=== PATIENT | female | born 1960 | race Hispanic/Latino ===

== ENCOUNTER 2024-12-08 08:40 | Emergency (ER) | payer MEDICARE, OTHER ==
[~2024-12-08] VITALS: Ht 157.5 cm; Wt 77.6 kg
[2024-12-08 08:45] VITALS: TEMP 98.2
[2024-12-08 09:06] LABS: BASOPHILS # (AUTO) 0.1 (0.0-0.1); BASOPHILS % 0.9 % (0.0-1.0); EOSINOPHILS # (AUTO) 0.3 (0.0-0.4); EOSINOPHILS % 2.2 % (0.0-6.0); HEMATOCRIT 37.1 % (34.2-44.1); HEMOGLOBIN 13.7 g/dL (12.0-16.0); LYMPHOCYTES # (AUTO) 1.9 (1.0-3.2); LYMPHOCYTES % 16.4 % (18.0-39.1); MEAN CORPUSCULAR HEMOGLOBIN 32.3 pg (28-32); MEAN CORPUSCULAR HGB CONC 36.9 g/dL (31-35); MEAN CORPUSCULAR VOLUME 87.5 fL (81-99); MONOCYTES # (AUTO) 0.6 (0.2-0.8); MONOCYTES % 5.1 % (4.4-11.3); NEUTROPHILS # (AUTO) 8.8 (2.1-6.9); NEUTROPHILS % 75.1 % (38.7-80.0); PLATELET COUNT 351 x10e3/uL (140-360); RED BLOOD COUNT 4.24 x10e6/uL (3.6-5.1); RED CELL DISTRIBUTION WIDTH 11.3 % (11.7-14.4); WHITE BLOOD COUNT 11.67 x10e3/uL (4.8-10.8)
[2024-12-08] MEDS: SODIUM CHLORIDE 0.9% 1000ML 1,000 ML IV ONE (09:23)
[2024-12-08] MEDS: ONDANSETRON HCL INJ 2MG/ML 2ML 2 MG/ML VIAL IV STA (09:23)
[2024-12-08] MEDS: DICYCLOMINE HCL 20 MG/2 ML VIAL IM ONE (09:23)
[2024-12-08 09:41] LABS: ALBUMIN 4.2 g/dL (3.5-5.0); ALBUMIN/GLOBULIN RATIO 1.1 (0.8-2.0); ANION GAP 16.3 mmol/L (8-16); BILIRUBIN,TOTAL 0.5 mg/dL (0.2-1.2); CALCIUM 9.1 mg/dL (8.4-10.2); CREATININE, SERUM 0.83 mg/dL (0.57-1.11); POTASSIUM 4.3 mmol/L (3.5-5.1); TOTAL PROTEIN 7.9 g/dL (6.5-8.1)
[2024-12-08 09:57] LABS: CLARITY,URINE CLEAR (CLEAR); COLOR,URINE YELLOW (YELLOW)
[2024-12-08 09:58] LABS: BILIRUBIN,URINE NEGATIVE (NEGATIVE); GLUCOSE, URINE 500 (NEGATIVE); KETONES,URINE NEGATIVE (NEGATIVE); LEUKOCYTE ESTERASE ,URINE NEGATIVE (NEGATIVE); NITRITE,URINE NEGATIVE (NEGATIVE); PH,URINE 6 (5 - 7); PROTEIN,URINE DIPSTICK >=300 (NEGATIVE); URINE UROBILINOGEN 0.2 mg/dL (0.2 - 1)
[2024-12-08 10:02] LABS: BACTERIA,URINE FEW /HPF; EPITHELIAL CELLS,URINE MANY /LPF; TRANSITIONAL EPI CELLS,URINE MODERATE
[2024-12-08] MEDS ORDERED: IOPAMIDOL 370 MG/ML 100 ML INFUS..BTL INJ ONE (10:11)
[2024-12-08] MEDS ORDERED: GOLYTELY SOLU4000 M1 PO (14:53)
[2024-12-08 15:05] VITALS: PULSE 98; RESP 16; O2SAT 98
== END 2024-12-08 15:00 | disposition home or self-care (01) ==
LOC: ER 08:46
DX: R10.32 Left lower quadrant pain (principal); K59.00 Constipation, unspecified; R19.09 Other intra-abdominal and pelvic swelling, mass and lump; K57.90 Diverticulosis of intestine, part unspecified, without perforation or abscess without bleeding; K44.9 Diaphragmatic hernia without obstruction or gangrene
CPT/HCPCS: 36415; 74177; 80053; 81001; 83690; 85025; 96372; 99284; J0500; J2405; J7030; Q9967